=== PATIENT | male | born 1975 | race Caucasian/White ===

== ENCOUNTER 2024-02-26 18:31 | Emergency (ER) | payer BC, SELFPAY ==
[2024-02-26 18:35] VITALS: PULSE 97; RESP 18; O2SAT 97
[2024-02-26 19:27] VITALS: BP 164/89; PULSE 96; RESP 18; TEMP 37; O2SAT 95; BMI 61.2
--- NOTE | 2024-02-26 19:39 | EKG_ITS ---
[facility] Test Date: 2024-02-26 Pat Name: ALICE GOYAL Department: Room: - Gender: Male [employer]: : 1975 Requested By: Zelalem Roa ([facility]) Order Number: [id number] Reading MD: Zelalem Roa ([facility]) Measurements Intervals [place] Rate: 88 P: 50 GA: 174 QRS: 71 QRSD: 110 T: 15 QT: 356 QTc: 431 Interpretive Statements SINUS RHYTHM No previous ECG available for comparison /store/S0/[id number]/[id number].pdf
--- NOTE | 2024-02-26 19:39 | XR_ITS ---
Examination: PA lateral chest 2 views Technique: Upright PA lateral chest 2 views Exam date and time: February 26, 20242021 hrs. Comparison December 09, 2015, December 14, 2015 Indication: Chest pain today. Findings: No significant cardiac enlargement Moderate vascular congestion No lobar pneumonia The osseous structures are intact Impression: Moderate vascular congestion
--- NOTE | 2024-02-26 19:39 | PD.EDRME ---
Rapid Medical Screening Exam RME Arrival date/time: 02/26/24 18:31 48-year-old morbidly obese male with past medical history of blood clots and hypertension presents emergency department complaining of shortness of breath on exertion and cough for several weeks. Chief Complaint: General Adult/Misc Complain Time Seen by Provider: 02/26/24 19:01 Vital signs: Vital Signs Temperature 98.6 F 02/26/24 19:27 Pulse Rate 96 02/26/24 19:27 Respiratory Rate 18 02/26/24 19:27 Blood Pressure 164/89 H 02/26/24 19:27 Pulse Oximetry (%) 95 02/26/24 19:27 Oxygen Delivery Method Room Air 02/26/24 19:27 Vital signs reviewed by provider: Yes
[2024-02-26 20:10] LABS: Basophils % (Auto) 1 % (0-2.5); Eosinophils % (Auto) 1 % (0-10); Hematocrit 39.9 % (41.0-53.0); Hemoglobin 13.2 g/dL (13.5-16.0); Immature Granulocytes % (Auto) 1 % (0-0); Immature Granulocytes Auto 0.03 Thou/mm3 (0.00-0.00); Lymphocytes # (Auto) 0.6 Thou/mm3 (1.0-4.8); Lymphocytes % (Auto) 10 % (10-50); Mean Corpuscular HGB Conc 33.1 g/dl (31.0-37.0); Mean Corpuscular Hemoglobin 27.3 pg (25.0-35.0); Mean Corpuscular Volume 82 fL (80-100); Monocytes # (Auto) 0.6 Thou/mm3 (0.0-0.8); Monocytes % (Auto) 10 % (0-12); Neutrophils # (Auto) 4.8 Thou/mm3 (1.8-7.7); Neutrophils % (Auto) 79 % (37-80); Nucleated Red Blood Cell % 0 /100 WBC (0); Platelet Count 180 Thou/mm3 (140-440); RDW Standard Deviation 41.4 fL (35.1-43.9); Red Blood Count 4.84 Miln/mm3 (4.50-5.90)
[2024-02-26 20:20] LABS: Collection Type, Urine Clean Catch; Squamous Epithelial Cell,Urine 0 /hpf (0-5)
[2024-02-26 20:27] LABS: B-Type Natriuretic Peptide 84 pg/mL (0-100)
[2024-02-26 20:28] LABS: Alanine Aminotransferase 11 U/L (10-49); Albumin, Serum 4.2 gm/dL (3.5-5.0); Albumin/Globulin Ratio 1.4 (1.2-2.2); Alkaline Phosphatase 77 U/L (46-116); Anion Gap 7 (7-16); Aspartate Amino Transferase 13 U/L (0-34); BUN/Creatinine Ratio 9 Ratio (12-20); Bilirubin,Total 0.8 mg/dL (0.3-1.2); Blood Urea Nitrogen 9 mg/dL (9-23); Calcium 9.2 mg/dL (8.3-10.6); Calcium (Corrected) 9.2 mg/dL (8.5-10.1); Chloride 102 mMol/L (98-107); Estimated Creatinine Clearance 151.5 mL/min (>60); Globulin 3.1 gm/dL (2.3-3.5); Glucose 124 mg/dL (74-106); Magnesium 1.7 mg/dL (1.6-2.6); Osmolality,Calculated 269 (275-295); Potassium 3.8 mMol/L (3.4-5.1); Sodium 135 mMol/L (136-145); Total Protein 7.3 gm/dL (5.7-8.2); Troponin I < 0.002 ng/mL (0.0-0.045); eGFR > 60 See Note
[2024-02-26 20:30] LABS: INR 1.1 (0.9-1.3); Partial Thromboplastin Time 36.5 Seconds (22.0-36.0); Prothrombin Time 12.2 Seconds (9.0-12.2)
[2024-02-26 20:31] LABS: Bacteria,Urine Rare; Bilirubin,Urine Negative (Negative); Blood,Urine Negative (Negative); Clarity,Urine Clear (Clear/Hazy); Color,Urine Lt-Yellow (Lt Yel-Yel); Glucose, Urine Negative (Negative); Ketones,Urine Negative (Negative); Leukocyte Esterase,Urine Negative (Negative); Nitrite,Urine Negative (Negative); PH,Urine 7.5 (5.0-7.0); Protein,Urine Trace (Neg - Trace); RBC,Urine 5 /hpf (0-3); Specific Gravity,Urine 1.017 (1.001-1.035); WBC,Urine 1 /hpf (0-5)
[2024-02-26 20:59] LABS: Amphetamine/Methamp Scrn,U Negative (Negative); Barbiturate Screen,Urine Negative (Negative); Benzodiazepines Screen,Urine Negative (Negative); Benzoylecgonine Screen, Ur Negative (Negative); Fentanyl Screen,Urine Negative (Negative); Opiate Screen,Urine Negative (Negative); THC Screen,Urine Negative (Negative)
--- NOTE | 2024-02-26 22:37 | XR_ITS ---
Examination: CTA chest with intravenous contrast 2-D reconstructions 3-D reconstructions, vascular Date and time of exam: February 26, 2024 1144 hours INDICATIONS: Weakness chest pain redness of breath beginning one week ago CTDI: vol (mGy) 67.73 DLP: (mGycm) 775 Technique: Multiple axial sections of the thorax have been obtained. 3 mm slice thickness, from below the hemidiaphragms to above the apices of the lungs. Mediastinal and lung density settings have been obtained. 2-D sagittal and coronal reconstructions. 3-D angiographic renderings, 3-D volume renderings, 3D post processing, vascular maximum intensity projections obtained. Contrast administered is 100 cc Isovue-370 intravenous. Low dose protocols were performed. One or more of the following dose reduction techniques were used; automated exposure control, adjustment of the mA and/or KV according to patient size, use of iterative reconstruction technique. Findings: No thoracic aortic aneurysm dilatation No pulmonary artery emboli. No pathologic mediastinal lymphadenopathy Soft parenchymal opacities in both lungs consistent with pneumonia No pleural disease Enlarged left atrium No visualized liver or splenic lesion IMPRESSION: Negative for pulmonary artery emboli Bilateral pneumonia, primary lung bases
--- NOTE | 2024-02-26 23:48 | EDNOTE_ITS ---
ED General RME/HPI General Chief complaint: General Adult/Misc Complain Stated complaint: GENERAL ILLNESS Time Seen by Provider: 02/26/24 19:01 Arrival date/time: 02/26/24 18:31 RME / HPI RME / HPI narrative: LChief complaint: 02/26/24 18:31 48-year-old morbidly obese male with past medical history of blood clots and hypertension presents emergency department complaining of shortness of breath on exertion and cough for several weeks. HPI: Mr. 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 Patient states that he went to [place] 5 years celebrations, and returned 3 days ago, since then he has been experiencing shortness of breath which has gotten progressively worse, especially on activity ambulation and exertion. He otherwise walks without assistance able to ambulate comfortably. However over the last 3 days patient has had a productive cough with greenish-yellow sputum, postnasal drip and intermittent fevers up to 100.6 on home thermometer, along with the worsening shortness of breath. He denies any chills, history of lung issues such as asthma or COPD, or chest pain. He was advised to use a CPAP given obesity hypoventilation syndrome, however does not have it set up at home yet and is not compliant. He also thinks that his shortness of breath got worse with [place] and weakness. Will also of note, patient never received his flu vaccination this cycle. Medication list: As needed bisacodyl Eliquis 2.5 mg twice daily Labetalol Iron supplements Allergies: NKFDA Social history: Tobacco?Use:?Denies ETOH?Use:?Socially Drug?Note:?Denies Social?History?Note:?Lives?with? Family history: Positive for stroke, negative for any heart disease or cancers. Related Data Home Medications ?Medication ?Instructions ?Recorded ?Confirmed BEDSIDE COMMODE 1 ea ##1 12/16/15 Previous Rx's ?Medication ?Instructions ?Recorded FRONT WHEEL WALKER 1 ea ##1 12/16/15 LABETALOL HCL (NORMODYNE) 200 mg PO BID #60 tabs 12/16/15 OXYGEN 1 l NASAL CAN CONTINUOUS ##2 12/16/15 apixaban 5 mg tablet (Eliquis) 5 mg PO BID #60 tabs 12/16/15 apixaban 5 mg tablet (Eliquis) 10 mg (2 x 5 mg) PO BID #6 tabs 12/16/15 bisacodyl 5 mg tablet,delayed 5 mg PO QDAY PRN CONSTIPATION ##30 12/16/15 release ferrous gluconate 324 mg (38 mg 324 mg PO BIDWM #30 tabs 12/16/15 iron) tablet Allergies Allergy/AdvReac Type Severity Reaction Status Date / Time NKA* Allergy Uncoded 02/26/24 18:39 Review of Systems Review of Systems Narrative Review of Systems: GENERAL: fevers, no diaphoresis. HEENT: Denies headache or visual/hearing changes. Denies nasal discharge. NEURO: Denies unusual weakness or difficulty speaking. CARDIO: Denies chest pain or palpitations. PULM: SOB, coughing, no wheezing. GI: Denies abdominal pain, N/V/C/D. Reports having BMs URO: Denies burning/itching/pain/urinary changes. MSK/EXT/SKIN: Denies joint/skeletal/muscle pain, issues/changes in upper or lower extremities, itchiness, or superficial pain. PSYCH: Cooperative, pleasant mood & affect. The rest of the review of systems is otherwise negative. ED Exam Narrative Physical exam: Constitutional Alert, oriented x4, morbidly obese HEENT Vision grossly intact. Patent nares. Trachea midline. Congestion Respiratory Chest normal on inspection, soft crackles on auscultation bilaterally. Cardiovascular S1 and S2 audible, RRR. No murmurs or carotid bruit. No gross JVD. Abdominal Soft and non tender to palpation in all quadrants. BS + Genitourinary No bladder tenderness, no flank pain. Normal to palpation. Musculoskeletal Extremities tone within normal limits. 1+ LE edema. Neurological CN II - XII grossly intact. Extremity motor and sensation grossly intact. Skin Warm, dry and intact. No apparent lesions. Psychiatric Patient has a good affect, is cooperative. Course Quality Measures VTE prophylaxis Orders Category Date Time Status Bedside Influenza A&B Antigen Test NOW Care 02/26/24 19:[address] Screening NOW Care 02/26/24 22:39 Active EKG (ED ONLY) *Do not use* NOW Care 02/26/24 19:[address] angio chest Stat Exams 02/26/24 22:37 Taken EKG (ED Only) Stat Exams 02/26/24 19:39 Draft XR chest 2V Stat Exams 02/26/24 19:39 Completed B-Type Natriuretic Peptide Stat Lab 02/26/24 19:57 Completed CBC Stat Lab 02/26/24 19:57 Completed Comprehensive Metabolic Panel Stat Lab 02/26/24 19:57 Completed Drug Screen,Urine Stat Lab 02/26/24 20:06 Completed Magnesium Stat Lab 02/26/24 19:57 Completed Partial Thromboplastin Time Stat Lab 02/26/24 19:57 Completed Prothrombin Time with INR Stat Lab 02/26/24 19:57 Completed Troponin I Stat Lab 02/26/24 19:57 Completed Urinalysis Stat Lab 02/26/24 20:06 Completed Vital Signs Vital signs: Vital Signs Temperature 98.6 F 02/26/24 19:27 Pulse Rate 96 02/26/24 19:27 Respiratory Rate 18 02/26/24 19:27 Blood Pressure 164/89 H 02/26/24 19:27 Pulse Oximetry (%) 95 02/26/24 19:27 Oxygen Delivery Method Room Air 02/26/24 19:27 [facility] Patient data External records reviewed:: None Clinical information provided by:: patient and friend Social determinants that could affect healthcare access:: none Patient has the following chronic illnesses:: 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 (list below): No Diagnosis Differential Diagnosis ED Complaint MDM: PE ruled out Most likely diagnosis given after review of the tests above:: Multifocal pneumonia Admission Indicated Admission indicated?: not indicated Explain why admission is indicated or not indicated:: Can do outpatient antibiotic course, pt is on room air, stable Admission Request Was there a request for admission?: No Disposition Plan Disposition Plan: Discharge Discharge Attestation Discharge Attestation: Patient is being discharged home on Augmentin 500mg twice a day for 5 days, follow up PCP. Will need CPAP. Patient condition: Stable The patient and all family members were given an opportunity to ask questions and understood the discharge instructions. Discharge instructions specifically effects, indications for sooner follow up or return to the emergency department, and the expected course of current diagnosis. Medical Decision Making Differential Diagnosis Differential Diagnosis: PE ruled out Lab Data 02/26/24 19:57 02/26/24 19:57 Labs: Lab Results 02/26/24 02/26/24 Range/Units 19:57 20:06 WBC 6.0 (3.8-10.6) Thou/mm3 RBC 4.84 (4.50-5.90) Miln/mm3 Hgb 13.2 L (13.5-16.0) g/dL Hct 39.9 L (41.0-53.0) % MCV 82 (80-100) fL MCH 27.3 (25.0-35.0) pg MCHC 33.1 (31.0-37.0) g/dl RDW Std Deviation 41.4 (35.1-43.9) fL Plt Count 180 (140-440) Thou/mm3 Neut % (Auto) 79 (37-80) % Lymph % (Auto) 10 (10-50) % [place] % (Auto) 10 (0-12) % Eos % (Auto) 1 (0-10) % Baso % (Auto) 1 (0-2.5) % Neut # (Auto) 4.8 (1.8-7.7) Thou/mm3 Lymph # (Auto) 0.6 L (1.0-4.8) Thou/mm3 [place] # (Auto) 0.6 (0.0-0.8) Thou/mm3 Eos # (Auto) 0.0 (0.0-0.5) Thou/mm3 Baso # (Auto) 0.0 (0.0-0.2) Thou/mm3 Immature Gran # (Auto) 0.03 H (0.00-0.00) Thou/mm3 Absolute Nucleated RBC 0.00 (0.00-0.00) Thou/mm3 Immature Gran % 1 H (0-0) % Nucleated RBC % 0 (0) /100 WBC PT 12.2 (9.0-12.2) Seconds INR 1.1 (0.9-1.3) APTT 36.5 H (22.0-36.0) Seconds Sodium 135 L (136-145) mMol/L Potassium 3.8 (3.4-5.1) mMol/L Chloride 102 (98-107) mMol/L Carbon Dioxide 26.0 (20.0-31.0) mMol/L Anion Gap 7 (7-16) BUN 9 (9-23) mg/dL Creatinine 1.0 (0.6-1.3) mg/dL Estim Creat Clear Calc 151.5 (>60) mL/min eGFR > 60 (60 - ) See Note BUN/Creatinine Ratio 9 L (12-20) Ratio Glucose 124 H (74-106) mg/dL Calculated Osmolality 269 L (275-295) Calcium 9.2 (8.3-10.6) mg/dL Corrected Calcium 9.2 (8.5-10.1) mg/dL Magnesium 1.7 (1.6-2.6) mg/dL Total Bilirubin 0.8 (0.3-1.2) mg/dL AST 13 (0-34) U/L ALT 11 (10-49) U/L Alkaline Phosphatase 77 (46-116) U/L Troponin I < 0.002 (0.0-0.045) ng/mL B-Natriuretic Peptide 84 (0-100) pg/mL Total Protein 7.3 (5.7-8.2) gm/dL Albumin 4.2 (3.5-5.0) gm/dL Globulin 3.1 (2.3-3.5) gm/dL Albumin/Globulin Ratio 1.4 (1.2-2.2) Ur Collection Type Clean Catch Urine Color Lt-Yellow (Lt Yel-Yel) Urine Clarity Clear (Clear/Hazy) Urine pH 7.5 H (5.0-7.0) Ur Specific [place] 1.017 (1.001-1.035) Urine Protein Trace (Neg - Trace) Urine Glucose (UA) Negative (Negative) Urine Ketones Negative (Negative) Urine Blood Negative (Negative) Urine Nitrite Negative (Negative) Urine Bilirubin Negative (Negative) Urine Urobilinogen (Auto) 2.0 (0.0-1.0) mg/dL Ur Leukocyte Esterase Negative (Negative) Urine RBC 5 H (0-3) /hpf Urine WBC 1 (0-5) /hpf Ur Squamous Epith Cells 0 (0-5) /hpf Urine Bacteria Rare (None) Urine Opiates Screen Negative (Negative) Urine Fentanyl Screen Negative (Negative) Ur Barbiturates Screen Negative (Negative) U Amphetamin/Meth Scrn Negative (Negative) U Benzodiazepines Scrn Negative (Negative) U Cocaine Metab Screen Negative (Negative) U Marijuana (THC) Screen Negative (Negative) Discharge Plan Plan Patient Disposition: HOME (Self Care) Disposition Comment: Stable and at baseline Patient condition on transfer: Stable Prescriptions/Referrals Prescriptions/Med Rec: No Action bisacodyl 5 MG tablet,delayed release (DR/EC) 5 mg PO QDAY PRN (Reason: CONSTIPATION) Qty: 30 0RF ferrous gluconate 324 MG tablet 324 mg PO BIDWM Qty: 30 0RF apixaban [Eliquis] 5 MG tablet 10 mg PO BID Qty: 6 0RF apixaban [Eliquis] 5 MG tablet 5 mg PO BID Qty: 60 0RF Rx Instructions: start eliquis 5 mg twice a day after 3 days LABETALOL HCL (NORMODYNE) 100 MG tablet 200 mg PO BID Qty: 60 0RF FRONT WHEEL WALKER EACH 1 ea Qty: 1 0RF OXYGEN EACH 1 l NASAL CAN CONTINUOUS Qty: 2 0RF BEDSIDE COMMODE EACH 1 ea Qty: 1 Referrals: Sarbjit Mendez MD [Primary Care Provider] - In 1 week Problem List Clinical Impression: Morbid obesity Patient/Caregiver Discharge Instructions Discharge Activity: resume usual activities Print Language: Yakut Stand Alone Forms: Lila Award Info., Patient Portal Info Letter
[2024-02-27 00:27] VITALS: BP 157/91; PULSE 95; RESP 20; O2SAT 95
--- NOTE | 2024-02-27 00:45 | PRELIM_ITS ---
CT angiogram of the chest with intravenous contrast (axial sections with sagittal and coronal reforma ts) February 26, 2024 at 2344 hours Clinical History: CP, SOB Technique:Helical axial sections with sa gittal and coronal reformats of the chest were obtained with intravenous contrast. Iterative reconstr uction technique was employed to reduce patient radiation exposure. MIP reconstructed images were al so provided. Comparison: None.Findings:Image quality is limited by the patient body habitus.There is no filling defect within the pulmonary artery divisions to suggest pulmonary thromboembolism.Prominen t mediastinal and bilateral hilar lymph nodes, probably reactive.Dilated left atrium. The thoracic ao rta is unremarkable. There is no pericardial effusion. Consolidations in bilateral lower lobes. Conso lidation in the right upper lobe. No evidence of pleural effusion or pneumothorax.Degenerative change s of the imaged portions of the spine. No acute fractures.The visualized upper abdominal viscera are unremarkable.Impression:1. No CT evidence of pulmonary thromboembolism.2. Multifocal pneumonia.3. Pro bably reactive mediastinal and bilateral hilar lymphadenopathy.4. Dilated left atrium. Report Electro nically Signed By: Bob Talley 02/27/2024 12:44:12 AM [EST]
== END 2024-02-27 01:20 | disposition home or self-care (01) ==
PROVIDERS: Emergency Provider Emergency Medicine; PCP Family Medicine
DX: E66.01 Morbid (severe) obesity due to excess calories (principal); Z86.711 Personal history of pulmonary embolism; I10 Essential (primary) hypertension; Z68.44 Body mass index [BMI] 60.0-69.9, adult; R05.9 Cough, unspecified; R06.02 Shortness of breath
CPT/HCPCS: 36415; 71046; 71275; 80053; 80307; 81001; 83735; 83880; 84484; 85025; 85610; 85730; 87400; 93005; 99285; A4649; Q9967

== ENCOUNTER 2024-08-11 11:35 | Emergency (ER) | payer BC, SELFPAY ==
[2024-08-11 11:36] VITALS: BMI 61.7
[2024-08-11 11:45] VITALS: BP 104/70; PULSE 109; RESP 20; TEMP 36.5; O2SAT 94; BMI 64.3
[2024-08-11 12:00] VITALS: TEMP 37.2
--- NOTE | 2024-08-11 12:01 | XR_ITS ---
Examination: Duplex scan of the lower extremity, unilateral left Date and time of exam: August 11, 2024 1239 hours INDICATIONS: Left leg swelling redness and pain beginning 2 days ago Technique: Duplex scan of the extremity veins using B-mode/grayscale imaging and Doppler spectral analysis and color flow Attention is directed to internal echogenicity, compression and augmentation involving these veins, color flow assessment, spectral analysis Findings: Major deep venous structures in the extremity demonstrate normal course and caliber. There is no evidence of deep vein thrombosis. Normal color flow and spectral analysis Impression: Negative for DVT..
--- NOTE | 2024-08-11 12:03 | PD.EDRME ---
Rapid Medical Screening Exam RME Arrival date/time: 08/11/24 11:35 49-year-old male presents emergency department today for complaints of erythema to left lower extremity patient also reports he had a fever as high as 102 Chief Complaint: Extremity Injury, Lower Vital signs: Vital Signs Temperature 97.7 F 08/11/24 11:45 Pulse Rate 109 H 08/11/24 11:45 Respiratory Rate 20 08/11/24 11:45 Blood Pressure 104/70 08/11/24 11:45 Pulse Oximetry (%) 94 L 08/11/24 11:45 Oxygen Delivery Method Room Air 08/11/24 11:45
[2024-08-11 12:43] LABS: Lactate (Lactic Acid) 2.5 mMol/L (0.4-2.0)
[2024-08-11 12:44] LABS: Basophils % (Auto) 0 % (0-2.5); Eosinophils % (Auto) 0 % (0-10); Hematocrit 41.8 % (41.0-53.0); Hemoglobin 14.2 g/dL (13.5-16.0); Immature Granulocytes % (Auto) 1 % (0-0); Immature Granulocytes Auto 0.11 Thou/mm3 (0.00-0.00); Lymphocytes # (Auto) 0.8 Thou/mm3 (1.0-4.8); Lymphocytes % (Auto) 7 % (10-50); Mean Corpuscular Hemoglobin 28.1 pg (25.0-35.0); Mean Corpuscular Volume 83 fL (80-100); Monocytes # (Auto) 0.3 Thou/mm3 (0.0-0.8); Monocytes % (Auto) 3 % (0-12); Neutrophils % (Auto) 88 % (37-80); Nucleated Red Blood Cell % 0 /100 WBC (0); Platelet Count 166 Thou/mm3 (140-440); RDW Standard Deviation 46.5 fL (35.1-43.9); Red Blood Count 5.06 Miln/mm3 (4.50-5.90); White Blood Count 10.2 Thou/mm3 (3.8-10.6)
[2024-08-11 12:59] LABS: INR 1.4 (0.9-1.3); Partial Thromboplastin Time 45.4 Seconds (22.0-36.0); Prothrombin Time 14.5 Seconds (9.0-12.2)
--- NOTE | 2024-08-11 13:06 | PC.NURSE ---
PT IN TODAY WITH REDNESS TO LEFT LOWER EXTREMITY AND FEVER THAT STARTED YESTERDAY. PT DID TAKE TYLENOL AT 1100 TODAY. PT IS A/O X4 AT THIS TIME. PT STATES TO HAVE PAIN TO THE LEFT LEG WHEN AMBULATING. PT RATES PAIN AT 2/10 AT THIS TIME AND DESCRIBES IT SHARP. PT AWAITING TO BE SEEN BY .
--- NOTE | 2024-08-11 13:11 | XR_ITS ---
Examination: AP chest single view TECHNIQUE: Portable AP upright chest single view Date and time: August 11, 2024 1317 hours INDICATIONS: Fever 102 FINDINGS: Normal heart size. Mild vascular congestion. No lobar pneumonia IMPRESSION: No lobar pneumonia
[2024-08-11 13:13] LABS: Alanine Aminotransferase 21 U/L (10-49); Albumin, Serum 3.9 gm/dL (3.5-5.0); Albumin/Globulin Ratio 1.3 (1.2-2.2); Alkaline Phosphatase 68 U/L (46-116); Anion Gap 9 (7-16); Aspartate Amino Transferase 25 U/L (0-34); BUN/Creatinine Ratio 11 Ratio (12-20); Bilirubin,Total 1.3 mg/dL (0.3-1.2); Blood Urea Nitrogen 23 mg/dL (9-23); C-Reactive Protein > 10.0 mg/dL (0.0-0.9); Calcium 8.7 mg/dL (8.3-10.6); Calcium (Corrected) 8.8 mg/dL (8.5-10.1); Carbon Dioxide 26.7 mMol/L (20.0-31.0); Chloride 97 mMol/L (98-107); Creatinine (Component) 2.1 mg/dL (0.6-1.3); Estimated Creatinine Clearance 73.6 mL/min (>60); Glucose 131 mg/dL (74-106); Osmolality,Calculated 272 (275-295); Potassium 3.8 mMol/L (3.4-5.1); Procalcitonin 3.79 ng/ml (0.0-0.49); Sodium 133 mMol/L (136-145); Total Protein 6.9 gm/dL (5.7-8.2); eGFR 37 See Note
[2024-08-11 13:17] LABS: Sed Rate (ESR) 56 mm/hr (0-20)
[2024-08-11 13:23] VITALS: BP 108/57; PULSE 105; RESP 19; TEMP 37.2; O2SAT 95
--- NOTE | 2024-08-11 13:25 | PD.EDADULT ---
ED General RME/HPI General Chief complaint: Extremity Injury, Lower Stated complaint: FEVER & PAIN IN LLE C 36HRS Time Seen by Provider: 08/11/24 13:08 Arrival date/time: 08/11/24 11:35 Limitations: no limitations RME / HPI RME / HPI narrative: 08/11/24 11:35 49-year-old male presents emergency department today for complaints of erythema to left lower extremity patient also reports he had a fever as high as 102 DR. 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 Patient's mother wrote on his leg to check the erythema and it is better than yesterday, area is getting smaller. No fevers or chills. No shortness of breath. No other symptoms reported. Related Data Home Medications ?Medication ?Instructions ?Recorded ?Confirmed BEDSIDE COMMODE 1 ea ##1 12/16/15 Previous Rx's ?Medication ?Instructions ?Recorded FRONT WHEEL WALKER 1 ea ##1 12/16/15 LABETALOL HCL (NORMODYNE) 200 mg PO BID #60 tabs 12/16/15 OXYGEN 1 l NASAL CAN CONTINUOUS ##2 12/16/15 apixaban 5 mg tablet (Eliquis) 5 mg PO BID #60 tabs 12/16/15 apixaban 5 mg tablet (Eliquis) 10 mg (2 x 5 mg) PO BID #6 tabs 12/16/15 bisacodyl 5 mg tablet,delayed 5 mg PO QDAY PRN CONSTIPATION ##30 12/16/15 release ferrous gluconate 324 mg (38 mg 324 mg PO BIDWM #30 tabs 12/16/15 iron) tablet cephalexin 500 mg capsule 500 mg PO Q6H 10 days #40 caps 08/11/24 sulfamethoxazole 800 1 tab PO BID 10 days #20 tabs 08/11/24 mg-trimethoprim 160 mg tablet (Bactrim DS) Allergies Allergy/AdvReac Type Severity Reaction Status Date / Time No Known Allergies Allergy Verified 08/11/24 11:39 Review of Systems Review of Systems Systems Reviewed: All systems reviewed, normal except as documented Past Medical History Past Medical History CARDIAC: Positive Hypertension; Negative Cardiac Disorders or Congestive Heart Failure RESPIRATORY: Positive Pneumonia and Pulmonary Embolism; Negative Chronic Obstructive Pulmonary Disease (COPD) or Asthma GASTROINTESTINAL: Positive Gastroesophageal Reflux Disease GENITOURINARY: Negative Renal Disease ENDOCRINE: Negative Diabetes Mellitus Type 1 or Diabetes Mellitus Type 2 HEMATOLOGIC: Negative Sickle Cell Disease Social History SMOKING STATUS: Never smoker ED Exam General Limitations: Present no limitations General appearance: Present alert, in no apparent distress and obese Head Head exam: Present atraumatic, normocephalic and normal inspection Eye Eye exam: Present normal appearance, PERRL and EOMI ENT ENT exam: Present normal exam, normal oropharynx and mucous membranes moist Neck Neck exam: Present normal inspection, full ROM and trachea midline Chest Chest inspection: Present normal inspection and symmetric chest wall rise Respiratory Respiratory exam: Present normal lung sounds bilaterally Cardiovascular Cardiovascular exam: Present regular rate, normal rhythm and normal heart sounds Abdominal Exam Abdominal exam: Present soft, normal bowel sounds and other (obese) Extremities Exam Extremities exam: Present full ROM and other (left lower extremity erythema measuring 7 x 6 cm, getting smaller since yesterday, with some scaling.) Back Exam Back exam: Present normal inspection and full ROM Neurological Exam Neurological exam: Present alert, oriented X3 and CN II-XII intact Psychiatric Psychiatric exam: Present normal affect and normal mood Skin Skin exam: Present warm, dry, intact and normal color Course Quality Measures none Orders Category Date Time Status Transcription NOW Care 08/11/24 13:11 Completed Continuous Pulse Oximetry NOW Care 08/11/24 13:11 Completed Insert IV NOW Care 08/11/24 13:11 Completed US venous doppler LE LT Stat Exams 08/11/24 12:01 Completed XR chest 1V portable Stat Exams 08/11/24 13:11 Completed Blood Culture (Lab) Stat Lab 08/11/24 12:22 Received CBC Stat Lab 08/11/24 12:22 Completed CMP [Comprehensive Metabolic Panel] Stat Lab 08/11/24 12:22 Completed CRP [C-Reactive Protein] Stat Lab 08/11/24 12:22 Completed ESR [Sed Rate (ESR)] Stat Lab 08/11/24 12:22 Completed Lactic Acid [Lactate (Lactic Acid)] Stat Lab 08/11/24 12:22 Completed PT [Prothrombin Time with INR] Stat Lab 08/11/24 12:22 Completed PTT [Partial Thromboplastin Time] Stat Lab 08/11/24 12:22 Completed Procalcitonin Stat Lab 08/11/24 12:22 Completed Piper/Tazo 3.375 gm Premix [Zosyn] Med 08/11/24 13:12 Discontinued 3.375 gm in 50 ml IV X1 Sodium Chloride 0.9% 1000 ml [Ns] 1,000 ml Med 08/11/24 13:11 Discontinued IV 100 mls/hr Vital Signs Vital signs: Vital Signs Temperature 97.7 F 08/11/24 11:45 Pulse Rate 109 H 08/11/24 11:45 Respiratory Rate 20 08/11/24 11:45 Blood Pressure 104/70 08/11/24 11:45 Pulse Oximetry (%) 94 L 08/11/24 11:45 Oxygen Delivery Method Room Air 08/11/24 11:45 Discharge Plan Plan Patient Disposition: HOME (Self Care) Patient condition on transfer: Stable Prescriptions/Referrals Prescriptions/Med Rec: New cephalexin 500 mg capsule 500 mg PO Q6H 10 Days Qty: 40 0RF sulfamethoxazole-trimethoprim [Bactrim DS] 800-160 mg tablet 1 tab PO BID 10 Days Qty: 20 0RF No Action bisacodyl 5 MG tablet,delayed release (DR/EC) 5 mg PO QDAY PRN (Reason: CONSTIPATION) Qty: 30 0RF ferrous gluconate 324 MG tablet 324 mg PO BIDWM Qty: 30 0RF apixaban [Eliquis] 5 MG tablet 10 mg PO BID Qty: 6 0RF apixaban [Eliquis] 5 MG tablet 5 mg PO BID Qty: 60 0RF Rx Instructions: start eliquis 5 mg twice a day after 3 days LABETALOL HCL (NORMODYNE) 100 MG tablet 200 mg PO BID Qty: 60 0RF FRONT WHEEL WALKER EACH 1 ea Qty: 1 0RF OXYGEN EACH 1 l NASAL CAN CONTINUOUS Qty: 2 0RF BEDSIDE COMMODE EACH 1 ea Qty: 1 Problem List Clinical Impression: Cellulitis Patient/Caregiver Discharge Instructions Education Materials: ED Cellulitis Additional Instructions: Take Tylenol 500 mg 2 tabs every 6 hours PLUS Advil 200 mg gel 2 tablets as needed for pain. Please follow-up with your primary care physician within 2-3 days. Return to the Emergency Department as needed. Print Language: Kiswahili Stand Alone Forms: Lila Award Info., Patient Portal Info Letter MDM Narrative MDM hospital course: Maria E Herman am scribing for and in the presence of Dr. Calvert. 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 Mild vascular congestion. No lobar pneumonia IMPRESSION: No lobar pneumonia Dictated By: Darion Hernandez MD Procedure(s): US venous doppler LE LT Accession Number(s): [id number] cc: Andria (MARCUS),Austen VELAZQUEZ; Darion Hernandez MD~ Examination: Duplex scan of the lower extremity, unilateral left Date and time of exam: August 11, 2024 1239 hours INDICATIONS: Left leg swelling redness and pain beginning 2 days ago Technique: Duplex scan of the extremity veins using B-mode/grayscale imaging and Doppler spectral analysis and color flow Attention is directed to internal echogenicity, compression and augmentation involving these veins, color flow assessment, spectral analysis Findings: Major deep venous structures in the extremity demonstrate normal course and caliber. There is no evidence of deep vein thrombosis. Normal color flow and spectral analysis Impression: Negative for DVT.. Dictated By: Darion Hernandez MD Medication Administration(s) Medication Administration History Discontinued Medications Sodium Chloride (Ns) 1,000 mls @ 100 mls/hr IV .Q10H ONE Stop: 08/11/24 23:10 Last Infusion: 08/11/24 15:19 Dose: Infused Documented By: Admin: 08/11/24 13:38 Dose: 100 mls/hr Documented By: RONAS Piperacillin/Tazobactam/Dextrose (Zosyn) 3.375 gm in 50 mls @ 100 mls/hr IV X1 ONE Stop: 08/11/24 13:41 Last Infusion: 08/11/24 15:19 Dose: Infused Documented By: Admin: 08/11/24 13:39 Dose: 100 mls/hr Documented By: RONAS Diagnosis Differential diagnosis: cellulitis, DVT, erythema Most likely dx, and/or detailed dx discussion: Cellulitis Dispositon Disposition: Discharge Home
[2024-08-11] MEDS: SODIUM CHLORIDE 0.9% 1000 ML 1,000 ML 100 ML IV (13:38)
[2024-08-11] MEDS: PIPER/TAZO 3.375 GM PREMIX 3.375 GM/50 ML BAG IV (13:39)
[2024-08-11 15:19] VITALS: BP 126/80; PULSE 96; O2SAT 95
[2024-08-11 15:37] LABS: Reflex Lactate? Y
== END 2024-08-11 15:20 | disposition home or self-care (01) ==
LOC: SERX 13:43
PROVIDERS: Nurse Practitioner Primary Care; Emergency Provider Family Medicine; PCP Family Medicine
DX: L03.116 Cellulitis of left lower limb (principal); R50.9 Fever, unspecified
CPT/HCPCS: 36415; 71045; 80053; 81001; 83605; 84145; 85025; 85610; 85652; 85730; 86140; 87040; 93971; 96365; 96366; 99284; J2543; J7030

== ENCOUNTER → 2024-08-13 | Outpatient (CLI) | payer BC, SELFPAY ==
[2024-08-13 16:50] LABS: Glucose Estimated Average 114 mg/dL (80-131); Hemoglobin A1C 5.6 % Hgb (4.8-6.0)
[2024-08-13 16:58] LABS: Alanine Aminotransferase 18 U/L (10-49); Albumin, Serum 3.9 gm/dL (3.5-5.0); Albumin/Globulin Ratio 1.3 (1.2-2.2); Alkaline Phosphatase 70 U/L (46-116); Anion Gap 7 (7-16); Aspartate Amino Transferase 16 U/L (0-34); BUN/Creatinine Ratio 18 Ratio (12-20); Bilirubin,Total 0.5 mg/dL (0.3-1.2); Blood Urea Nitrogen 28 mg/dL (9-23); Calcium 8.8 mg/dL (8.3-10.6); Calcium (Corrected) 8.9 mg/dL (8.5-10.1); Carbon Dioxide 29.5 mMol/L (20.0-31.0); Cardiac Risk Estimate 5.9 RATIO (4.0-6.7); Chloride 101 mMol/L (98-107); Cholesterol 107 mg/dL (132-200); Creatinine (Component) 1.6 mg/dL (0.6-1.3); Globulin 2.9 gm/dL (2.3-3.5); Glucose 114 mg/dL (74-106); HDL Cholesterol 18 mg/dL (40-60); LDL Cholesterol,Calculated 52 mg/dL (0-130); Osmolality,Calculated 280 (275-295); Potassium 3.9 mMol/L (3.4-5.1); Sodium 137 mMol/L (136-145); Thyroid Stimulating Hormone 3.92 uIU/mL (0.55-4.78); Total Protein 6.8 gm/dL (5.7-8.2); Triglycerides 185 mg/dL (30-150); eGFR 52 See Note
[2024-08-13 17:32] LABS: T4 (Thyroxine) 6.9 mcg/dL (4.5-10.9)
== END | disposition home or self-care (01) ==
LOC: COPL 15:33
PROVIDERS: PCP Family Medicine; Referring Provider Family Medicine; Visit Provider Family Medicine
DX: E66.01 Morbid (severe) obesity due to excess calories (principal); G47.33 Obstructive sleep apnea (adult) (pediatric); I10 Essential (primary) hypertension; R79.9 Abnormal finding of blood chemistry, unspecified
CPT/HCPCS: 36415; 80053; 80061; 83036; 84436; 84443

== ENCOUNTER 2024-08-15 08:23 | Inpatient (IN) | payer BC, SELFPAY ==
[2024-08-15] VITALS (19 sets, daily range): BP systolic 91–169; BP diastolic 63–98; PULSE 82–100; RESP 18–20; TEMP 36.7–37.4; O2SAT 88–97; BMI 63.8; BMI 62.2
--- NOTE | 2024-08-15 09:10 | PD.EDRME ---
Rapid Medical Screening Exam E Arrival date/time: 08/15/24 08:23 49-year-old male with a history of hypertension, presents to the emergency room with a chief complaint of left lower extremity swelling, erythema, drainage. Patient was seen here 4 days ago and was discharged with cellulitis given oral antibiotics. Patient was seen by his primary care provider and was sent to the emergency room for IV antibiotics. I have greeted and performed a focused initial assessment of this patient. A comprehensive ED assessment and evaluation of the patient, analysis of all test results, and completion of the medical decision making process will be conducted by additional ED providers. Chief Complaint: Wound/Laceration Time Seen by Provider: 08/15/24 08:53 Vital signs: Vital Signs Temperature 98.3 F 08/15/24 08:53 Pulse Rate 100 08/15/24 08:53 Respiratory Rate 20 08/15/24 08:53 Blood Pressure 145/82 H 08/15/24 08:53 Pulse Oximetry (%) 95 08/15/24 08:53 Oxygen Delivery Method Room Air 08/15/24 08:53 Vital signs reviewed by provider: Yes
[2024-08-15 09:38] LABS: Lactate (Lactic Acid) 1.1 mMol/L (0.4-2.0)
[2024-08-15 09:46] LABS: Basophils % (Auto) 0 % (0-2.5); Eosinophils # (Auto) 0.1 Thou/mm3 (0.0-0.5); Eosinophils % (Auto) 1 % (0-10); Hematocrit 37.7 % (41.0-53.0); Hemoglobin 12.5 g/dL (13.5-16.0); Immature Granulocytes % (Auto) 1 % (0-0); Immature Granulocytes Auto 0.09 Thou/mm3 (0.00-0.00); Lymphocytes # (Auto) 1.3 Thou/mm3 (1.0-4.8); Lymphocytes % (Auto) 15 % (10-50); Mean Corpuscular HGB Conc 33.2 g/dl (31.0-37.0); Mean Corpuscular Hemoglobin 27.4 pg (25.0-35.0); Mean Corpuscular Volume 83 fL (80-100); Monocytes # (Auto) 0.7 Thou/mm3 (0.0-0.8); Monocytes % (Auto) 8 % (0-12); Neutrophils # (Auto) 6.6 Thou/mm3 (1.8-7.7); Neutrophils % (Auto) 75 % (37-80); Nucleated Red Blood Cell % 0 /100 WBC (0); Platelet Count 216 Thou/mm3 (140-440); RDW Standard Deviation 45.4 fL (35.1-43.9); Red Blood Count 4.57 Miln/mm3 (4.50-5.90); White Blood Count 8.8 Thou/mm3 (3.8-10.6)
[2024-08-15 10:34] LABS: Alanine Aminotransferase 18 U/L (10-49); Albumin/Globulin Ratio 1.2 (1.2-2.2); Alkaline Phosphatase 80 U/L (46-116); Anion Gap 8 (7-16); Aspartate Amino Transferase 15 U/L (0-34); BUN/Creatinine Ratio 17 Ratio (12-20); Bilirubin,Total 0.5 mg/dL (0.3-1.2); Blood Urea Nitrogen 22 mg/dL (9-23); Calcium 8.9 mg/dL (8.3-10.6); Calcium (Corrected) 8.9 mg/dL (8.5-10.1); Carbon Dioxide 27.1 mMol/L (20.0-31.0); Chloride 101 mMol/L (98-107); Creatinine (Component) 1.3 mg/dL (0.6-1.3); Estimated Creatinine Clearance 118.4 mL/min (>60); Globulin 3.3 gm/dL (2.3-3.5); Glucose 132 mg/dL (74-106); Osmolality,Calculated 277 (275-295); Potassium 3.7 mMol/L (3.4-5.1); Procalcitonin 0.65 ng/ml (0.0-0.49); Sodium 136 mMol/L (136-145); Total Protein 7.3 gm/dL (5.7-8.2); eGFR > 60 See Note
--- NOTE | 2024-08-15 12:11 | EDNOTE_ITS ---
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 Patient was diagnosed with cellulitis and seen in this emergency room 4 days ago was given IV Zosyn, and was discharged home on Keflex and Bactrim. Patient been taking the medication. Yesterday patient developed a fever. Went to PCP and was referred here for IV antibiotic. Patient is currently taking Eliquis for PE. Ultrasound was done of the left lower extremity 4 days ago and negative for DVT. Related Data Home Medications ?Medication ?Instructions ?Recorded ?Confirmed hydrochlorothiazide 25 mg tablet 25 mg PO QDAY 5 08/15/24 labetalol 200 mg tablet 200 mg PO Q12H 08/15/2407/21 omeprazole 40 mg capsule,delayed 40 mg PO QDAY 5 08/15/24 release valsartan 320 mg tablet 320 mg PO QDAY 08/15/2407/21 Previous Rx's ?Medication ?Instructions ?Recorded apixaban 5 mg tablet (Eliquis) 5 mg PO BID #60 tabs cephalexin 500 mg capsule 500 mg PO Q6H 10 days #40 ca ps 08/11/24 sulfamethoxazole 800 1 tab PO BID 10 days #20 tab s 08/11/24 mg-trimethoprim 160 mg tablet (Bactrim DS) Allergies Allergy/AdvReac Type Severity Reaction Status Date / Time No Known Allergies Allergy Verified 08/15/24 08:28 Review of Systems Review of Systems Narrative Review of Systems: Review of system reviewed and within normal limits except mentioned in HPI ED Exam Narrative Physical exam: VITAL SIGNS: Reviewed. GENERAL APPEARANCE: Alert and interactive, follows commands, no acute distress, HEAD AND FACE: Non-traumatic. ENT: PERRL, pink conjunctivitis, eyelid no trauma, Mucous membrane moist. NECK: Supple, nontender, no nuchal rigidity. CHEST: No tenderness, no crepitus, no paradoxical movement, no retractions. LUNGS: Clear, well ventilated, symmetric, no rales, no wheezing, no ronchi, no stridor, good breath sounds bilaterally. HEART: Regular rate, regular rhythm, no murmur, no gallops. ABDOMEN: Soft, positive bowel sounds, nondistended, no guarding, nontender, no rebound, no masses, RECTAL: Deferred. GENITAL: Deferred. NEUROLOGICAL: Gross motor function intact sensory function intact, Appropriate for age. MUSCULOSKELETAL: low back nontender, full range of motion. EXTREMITIES: Redness to the left lower extremity, with weeping excoriation yellowish in color no crepitus nonfluctuant with tenderness, full range of motion. Dorsalis pedis and posterior tibialis pulses +1 SKIN: Color pink, dry, no rash, no lacerations, no abrasions, no contusions. LYMPHATICS: Deferred. Course Quality Measures none Orders Category Date Time Status COVID-19 Screening Questionnaire NOW Care 08/15/24 14:[address] Screening NOW Care 08/15/24 12:15 Active Decision to Admit X1 Care 08/15/24 14:[address] lower leg LT w con Stat Exams 08/15/24 12:14 Completed Blood Culture (Lab) Stat Lab 08/15/24 09:30 Received CBC Stat Lab 08/15/24 09:30 Completed CMP [Comprehensive Metabolic Panel] Stat Lab 08/15/24 09:30 Completed Lactate (Lactic Acid) Stat Lab 08/15/24 09:30 Completed Procalcitonin Stat Lab 08/15/24 09:30 Completed Piper/Tazo 3.375 gm Premix [Zosyn] Med 08/15/24 12:14 Discontinued 3.375 gm in 50 ml IV X1 Vancomycin/Ns 1 gm Ivpb 200 ml Med 08/15/24 12:30 Discontinued IV X1 Vancomycin/Ns 1 gm Ivpb 200 ml Med 08/15/24 14:10 Discontinued IV X1 Vital Signs Vital signs: Vital Signs Temperature 98.3 F 08/15/24 08:53 Pulse Rate 100 08/15/24 08:53 Respiratory Rate 20 08/15/24 08:53 Blood Pressure 145/82 H 08/15/24 08:53 Pulse Oximetry (%) 95 08/15/24 08:53 Oxygen Delivery Method Room Air 08/15/24 08:53 Wound / Laceration MDM Narrative MDM Narrative:: 49 year old male with past medical history significant for 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 Patient was diagnosed with cellulitis and seen in this emergency room 4 days ago was given IV Zosyn, and was discharged home on Keflex and Bactrim. Patient been taking the medication. Yesterday patient developed a fever. Went to PCP and was referred here for IV antibiotic. Patient is currently taking Eliquis for PE. Ultrasound was done of the left lower extremity 4 days ago and negative for DVT. Laboratory workup all came back unremarkable. No leukocytosis however CT scan of the lower leg with contrast showed significant cellulitis moderate, no abscess noted no bony abnormality noted. Patient received IV Zosyn and Vanco. Discussed case with hospitalist, who admitted patient Patient data External records reviewed:: None Clinical information provided by:: patient Social determinants that could affect healthcare access:: none Patient has the following chronic illnesses:: None How is presenting disease/condition affected by chronic disease/condition?: no chronic disease Evaluation data The following diagnostics were reviewed and interpreted by me:: lab results and radiology exam(s) Lab and/or radiology exams considered but not ordered:: None Interpretation Summary: See results [facility] Medications / Prescriptions Medications or Prescriptions considered but not ordered:: None Medication administrations:: Medication Administration History Acetaminophen (Acetaminophen 325 Mg Tablet) 650 mg PO Q6H PRN PRN Reason: PAIN OR FEVER > 101 Stop: 09/14/24 14:51 Apixaban (Apixaban 2.5 Mg Tablet) 5 mg PO BID [facility] Stop: 09/05/24 20:59 Last Admin: 08/15/24 21:25 Dose: 5 mg Documented By: GABI Hydrochlorothiazide (Hydrochlorothiazide 12.5 Mg Capsule) 25 mg PO QDAY [facility] Stop: 09/15/24 08:59 Lactated Ringer's (Lactated Ringers) 1,000 mls @ 75 mls/hr IV .[id number] ONE Stop: 08/16/24 04:13 Last Admin: 08/15/24 15:55 Dose: 75 mls/hr Documented By: WALI Cefazolin Sodium (Ancef 2gm Ivpb) 2 gm in 100 mls @ 100 mls/hr IV Q8HR [facility] Stop: 08/22/24 20:59 Last Admin: 08/15/24 21:25 Dose: 100 mls/hr Documented By: GABI Labetalol HCl (Labetalol 100 Mg Tablet) 200 mg PO BID [facility] Stop: 09/14/24 20:59 Last Admin: 08/15/24 21:24 Dose: 200 mg Documented By: GABI Ondansetron HCl (Ondansetron Inj 2 Mg/Ml Inj 2 Ml) 4 mg IVP Q6H PRN; Protocol PRN Reason: NAUSEA OR VOMITING Stop: 09/14/24 14:51 Pantoprazole Sodium (Pantoprazole 40 Mg Tablet) 40 mg PO QDAY [facility] Stop: 09/14/24 14:59 Last Admin: 08/15/24 15:55 Dose: 40 mg Documented By: WALI Sennosides (Senna Tablet) 1 tab PO QDAY [facility]; Protocol Stop: 09/15/24 08:59 Valsartan (Valsartan 80 Mg Tablet) 320 mg PO QDAY [facility] Stop: 09/15/24 08:59 Discontinued Medications Furosemide (Furosemide Inj 10 Mg/Ml 4ml Vial) 40 mg IVP X1 ONE Stop: 08/15/24 15:02 Last Admin: 08/15/24 15:50 Dose: 40 mg Documented By: WALI Piperacillin/Tazobactam/Dextrose (Zosyn) 3.375 gm in 50 mls @ 100 mls/hr IV X1 ONE Stop: 08/15/24 12:43 Last Infusion: 08/15/24 13:55 Dose: Infused Documented By: Admin: 08/15/24 12:47 Dose: 100 mls/hr Documented By: WALI Vancomycin/Sodium Chloride (Vancomycin/Ns 1 Gm Ivpb) 200 mls @ 120 mls/hr IV X1 ONE Stop: 08/15/24 14:09 Last Infusion: 08/15/24 14:45 Dose: Infused Documented By: Admin: 08/15/24 12:48 Dose: 120 mls/hr Documented By: WALI Vancomycin/Sodium Chloride (Vancomycin/Ns 1 Gm Ivpb) 200 mls @ 120 mls/hr IV X1 ONE Stop: 08/15/24 15:49 Last Infusion: 08/15/24 17:11 Dose: Infused Documented By: Admin: 08/15/24 14:53 Dose: 120 mls/hr Documented By: WALI Vancomycin IV, Lasix IV, and Zosyn IV Consultations Consultation(s) initiated? (list below): No Diagnosis Wound Differential Diagnosis: abscess and other (Lower leg cellulitis,) Most likely diagnosis given after review of the tests above:: Lower leg cellulitis, failed antibiotic treatment Admission Indicated Admission indicated?: not indicated Admission Request Was there a request for admission?: Yes Admission Attestation Admission request attestation: Discussed case with [Dr. Carrera] from Hospitalist service regarding admission. Discussed patients ED course, exam findings, labs, and radiology results. The Hospitalist [agrees] to accept the patient for admission. Disposition Plan Disposition Plan: Admit Discharge Plan Plan Patient Disposition: Admit Acute Care w/in Hospital Problem List Clinical Impression: Cellulitis of lower leg, Failure of outpatient treatment
--- NOTE | 2024-08-15 12:14 | XR_ITS ---
Examination: CT left lower extremity with intravenous contrast, 2-D sagittal reconstructions. 2-D coronal reconstructions. 3-D reconstructions. Date and time of exam:August 15, 2024 at 1332 hours INDICATIONS: Left lower leg swelling and pain with drainage beginning 3 days ago CTDI: vol (mGy):8.29 DLP: (mGycm):594 Technique: Multiple 1.25 mm axial sections of the left lower extremity with 60 cc Isovue-370 have been obtained. 2-D sagittal and coronal reconstructions have been obtained. 3-D reconstructions have been obtained. Low dose protocols were performed. One or more of the following dose reduction techniques were used; automated exposure control, adjustment of the mA and/or KV according to patient size, use of iterative reconstruction technique. Findings: Edema in the subcutaneous fatty tissue medial posterior and anterior lower extremity, most pronounced adjacent to the anterior margin of the tibia No soft tissue abscess No huber cortical bone destruction IMPRESSION: Significant cellulitis pattern Negative for osteomyelitis Negative for soft tissue abscess
[2024-08-15] MEDS: PIPER/TAZO 3.375 GM PREMIX 3.375 GM/50 ML BAG IV (12:47)
[2024-08-15] MEDS: VANCOMYCIN/NS 1 GM IVPB 200 ML IV ×2 (12:48→14:53)
--- NOTE | 2024-08-15 15:20 | ESHP_ITS ---
Documentation for date of: 08/15/24 HPI History of Present Illness History of present illness: 49-year-old male with past medical history of pulmonary embolism on Eliquis, morbidly obese with BMI of 61, history of hypertension presented to ED with chief complaints of left lower extremity redness, drainage that was progressively getting worse. Per patient on Sunday he noticed some redness on left lower extremity, however does not recall any recent insect bite, any trauma/injury. Patient presented to ED on Sunday, ultrasound of the leg was done which was negative for DVT, patient discharged from ED with p.o. antibiotics. However patient stated that symptoms did not appear to be improving. He developed fever, chills, mild nausea, contacted PCP regarding current symptoms and worsening left lower redness and drainage, and was sent to ED by PCP for further evaluation. On presentation patient was hemodynamically stable, labs were insignificant, negative for leukocytosis, lactic acid was negative, slightly elevated Pro-Jw, lower extremity CT revealed significant cellulitis pattern, negative for osteomyelitis or soft tissue abscess. Patient was given vancomycin and Zosyn, and was admitted for cellulitis treatment and management requiring IV antibiotics. Past medical history as above Past surgical history none Allergies NKDA Medication Eliquis, labetalol, valsartan, hydrochlorothiazide Family history unremarkable Social history lives with Review of Systems Review of Systems Systems Reviewed: All systems reviewed, normal except as documented Exam Vital Signs Temp Pulse Resp BP Pulse Ox O2 Del Method 98.5 F 87 18 142/79 H 97 Room Air 08/15/24 14:08/15/24 14:08/15/24 14:08/15/24 14:08/15/24 14:08/15/24 14:00 Narrative Exam GENERAL: no acute distress, AAO x3, obese male, HEENT: Head AT/ NC. Mucous membranes moist. PERRL. NECK: Supple, no lymphadenopathy, no carotid bruits. CARDIOVASCULAR: RRR. Normal S1/S2, No m/r/g. No pitting edema of bilateral LEs. RESPIRATORY: CTAB. No wheezing, rhonchi, crackles. GASTROINTESTINAL: Abdomen soft, non tender no palpable masses. Bowel sounds present in all 4 quadrants. MUSCULOSKELETAL:?erythema in the left lower extremity, extending to the mid- mack, without well-defined borders. The area is warm to the touch, and a small bolus is noted on the posterior side. There is serosanguineous drainage observed from the affected area. Additionally, the patient has bilateral stasis dermatitis. NEUROLOGICAL: CN II-XII grossly intact. No focal deficits. Sensation intact, symmetric. PSYCHIATRIC: Awake and alert, not agitated, normal mood and affect. INTEGUMENTARY: No obvious rashes, no jaundice, normal turgor. Results: Labs 08/16/24 05:25 08/16/24 05:25 Labs: Short CBC 08/15/24 Range/Units 09:30 WBC 8.8 (3.8-10.6) Thou/mm3 Hgb 12.5 L (13.5-16.0) g/dL Hct 37.7 L (41.0-53.0) % Plt Count 216 D (140-440) Thou/mm3 BMP 08/15/24 09:30 Sodium 136 Potassium 3.7 Chloride 101 Carbon Dioxide 27.1 BUN 22 Creatinine 1.3 Glucose 132 H Calcium 8.9 Liver Function 08/15/24 Range/Units 09:30 Total Bilirubin 0.5 (0.3-1.2) mg/dL AST 15 (0-34) U/L ALT 18 (10-49) U/L Alkaline Phosphatase 80 (46-116) U/L Albumin 4.0 (3.5-5.0) gm/dL Quality Measures Quality Measures VTE prophylaxis Medications Home Medications and Allergies Home Medications ?Medication ?Instructions ?Recorded ?Confirmed ?Type hydrochlorothiazide 25 mg tablet 25 mg PO QDAY 5 08/15/24 History labetalol 200 mg tablet 200 mg PO Q12H 08/15/2407/21 History omeprazole 40 mg capsule,delayed 40 mg PO QDAY 5 08/15/24 History release valsartan 320 mg tablet 320 mg PO QDAY 08/15/2407/21 History Allergies Allergy/AdvReac Type Severity Reaction Status Date / Time No Known Allergies Allergy Verified 08/15/24 08:28 Visit Medications Acetaminophen (Acetaminophen 325 Mg Tablet) 650 mg PO Q6H PRN PRN Reason: PAIN OR FEVER > 101 Stop: 09/14/24 14:51 Apixaban (Apixaban 2.5 Mg Tablet) 5 mg PO BID BENJAMIN Stop: 09/05/24 20:59 Hydrochlorothiazide (Hydrochlorothiazide 12.5 Mg Capsule) 25 mg PO QDAY BENJAMIN Stop: 09/15/24 08:59 Vancomycin/Sodium Chloride (Vancomycin/Ns 1 Gm Ivpb) 200 mls @ 120 mls/hr IV X1 ONE Stop: 08/15/24 15:49 Last Admin: 08/15/24 14:53 Dose: 120 mls/hr Lactated Ringer's (Lactated Ringers) 1,000 mls @ 75 mls/hr IV .[id number] ONE Stop: 08/16/24 04:13 Cefazolin Sodium (Ancef 2gm Ivpb) 2 gm in 100 mls @ 100 mls/hr IV Q8HR BENJAMIN Stop: 08/22/24 20:59 Labetalol HCl (Labetalol 100 Mg Tablet) 200 mg PO BID [facility] Stop: 09/14/24 20:59 Ondansetron HCl (Ondansetron Inj 2 Mg/Ml Inj 2 Ml) 4 mg IVP Q6H PRN; Protocol PRN Reason: NAUSEA OR VOMITING Stop: 09/14/24 14:51 Pantoprazole Sodium (Pantoprazole 40 Mg Tablet) 40 mg PO QDAY [facility] Stop: 09/14/24 14:59 Sennosides (Senna Tablet) 1 tab PO QDAY [facility]; Protocol Stop: 09/15/24 08:59 Valsartan (Valsartan 80 Mg Tablet) 320 mg PO QDAY [facility] Stop: 09/15/24 08:59 Discontinued Medications Furosemide (Furosemide Inj 10 Mg/Ml 4ml Vial) 40 mg IVP X1 ONE Stop: 08/15/24 15:02 Piperacillin/Tazobactam/Dextrose (Zosyn) 3.375 gm in 50 mls @ 100 mls/hr IV X1 ONE Stop: 08/15/24 12:43 Last Infusion: 08/15/24 13:55 Dose: Infused Vancomycin/Sodium Chloride (Vancomycin/Ns 1 Gm Ivpb) 200 mls @ 120 mls/hr IV X1 ONE Stop: 08/15/24 14:09 Last Infusion: 08/15/24 14:45 Dose: Infused Assessment & Plan Plan 49-year-old male with past medical history of hypertension, PE on Eliquis was admitted for left lower extremity cellulitis treatment and management #LLE cellulitis Patient presented with chief complaints of left lower extremity redness and drainage that was progressively getting worse Patient failed outpatient p.o. antibiotics treatment Physical exam is positive for?erythema in the left lower extremity, extending to the mid-mack, without well-defined borders. The area is warm to the touch, and a small bolus is noted on the posterior side. There is serosanguineous drainage observed from the affected area. Additionally, the patient has bilateral stasis dermatitis. Patient also complaining of systemic symptoms such as fever, chills, generalized weakness which has resolved on the day of presentation In the ED patient received Vanco and Zosyn with IVF - Continue with cefazolin gram every 8 hours - Low suspicion for MRSA - Follow-up with the blood culture - Daily CBC CMP - Wound care - Leg elevation #BL LE Edema #chronic stasis dermatitis - X1 IVF lasix - Echo Chronic conditions #HTN -continue home HCTZ, -continue home labetolol #PE -continue Elequise Disposition:medsurge DVT prophylaxis: elequise GI prophylaxis: PPI Diet: cardiac Lines: PIV CODE STATUS:Full code Patient care was discussed with attending physician Dr. Deandre Linares MD PGY-2 I have carefully reviewed this document. Due to imperfections in the voice software, there could be grammatical errors including phonetic/typographic errors. This in no way compromises the medical care the patient is receiving Attending Provider Attestation/Addendum I have examined the patient, reviewed labs and imaging findings, discussed the case with the resident(s), and reviewed entered orders. I agree with the plan of care as outlined in this note, with these additional summaries/recommendations: After examination of the patient and review of the clinical data, I feel that this patient needs admission to the hospital for further treatment and evaluation. Patient is a 49-year-old male with a medical history of deep vein thrombosis/pulmonary embolism on Eliquis, primary hypertension, and obesity who presents to [facility] emergency department on 08/15/2024 with chief complaint of worsening left lower extremity cellulitis. Patient seen at bedside. He reports he was seen in the emergency room 4-days prior for left lower extremity cellulitis and was prescribed oral antibiotics. Patient has been taking antibiotics as prescribed but despite this the left lower extremity cellulitis has worsened. Patient has had increasing pain, swelling, and redness. Patient started on broad-spectrum antibiotics which we will continue. Blood cultures taken and follow-up results when available. Order wound care. Patient also noted to have bilateral lower extremity swelling and we will give one-time dose of Lasix and order echocardiogram to rule out congestive heart failure. Continue home antihypertensives. Patient updated on the plan and in agreement. All questions answered to satisfaction. Please see residents note for additional details of management. Dr. Deandre MD
[2024-08-15] MEDS: FUROSEMIDE INJ 10 MG/ML 4ML VIAL 40 MG IVP (15:50)
[2024-08-15] MEDS: PANTOPRAZOLE 40 MG TABLET PO (15:55)
[2024-08-15] MEDS: RINGERS LACTATED 1000 ML 1,000 ML 75 ML IV (15:55)
--- NOTE | 2024-08-15 16:06 | PC.CC ---
Patient is a 49 year-old male who presents to the hospital for Cellulitis. FLOYDWMelisa and WORKDAY DIRECTOR Student Linette made [id number] contact with patient. ASW introduced self, role, and reason for visit. Patient appeared alert and oriented to self, location, and situation. Patient provided consent for WORKDAY DIRECTOR to remain in the room during assessment. Patient was pleasant and engaged in initial assessment. Patient confirmed information on demographics and reports to living with his mother, Rachel Peraza . Patient reports that in the event he is unable to make his own medical decisions his mother would be his medical decision maker. Patient reports he is employed with [employer]. Patient reports he is able to ambulate independently and complete his own ADLs. The patient does not require any DME such as oxygen and is not a dialysis patient. Patient's primary provider is Shila Mendez and uses [facility]. Upon discharge the patient plans to return back home. media services director to follow up with any discharge needs.
[2024-08-15] MEDS: LABETALOL 100 MG TABLET 200 MG PO (21:24)
[2024-08-15] MEDS: ceFAZolin/D5W 2 GM IV 2 GM/100 ML BAG IV (21:25)
[2024-08-15] MEDS: APIXABAN 2.5 MG TABLET 5 MG PO (21:25)
[2024-08-16] VITALS (8 sets, daily range): BP systolic 108–157; BP diastolic 63–88; PULSE 84–100; RESP 18–20; TEMP 36.6–36.9; O2SAT 95–96
[2024-08-16] MEDS: ceFAZolin/D5W 2 GM IV 2 GM/100 ML BAG IV ×3 (05:21→21:10)
[2024-08-16 06:36] LABS: Basophils % (Auto) 0 % (0-2.5); Eosinophils # (Auto) 0.1 Thou/mm3 (0.0-0.5); Eosinophils % (Auto) 2 % (0-10); Hematocrit 37.1 % (41.0-53.0); Hemoglobin 12.3 g/dL (13.5-16.0); Immature Granulocytes % (Auto) 2 % (0-0); Immature Granulocytes Auto 0.17 Thou/mm3 (0.00-0.00); Lymphocytes # (Auto) 1.3 Thou/mm3 (1.0-4.8); Lymphocytes % (Auto) 16 % (10-50); Mean Corpuscular HGB Conc 33.2 g/dl (31.0-37.0); Mean Corpuscular Hemoglobin 27.9 pg (25.0-35.0); Mean Corpuscular Volume 84 fL (80-100); Monocytes # (Auto) 0.6 Thou/mm3 (0.0-0.8); Monocytes % (Auto) 8 % (0-12); Neutrophils # (Auto) 5.9 Thou/mm3 (1.8-7.7); Neutrophils % (Auto) 73 % (37-80); Nucleated Red Blood Cell % 0 /100 WBC (0); Platelet Count 249 Thou/mm3 (140-440); RDW Standard Deviation 46.2 fL (35.1-43.9); Red Blood Count 4.41 Miln/mm3 (4.50-5.90); White Blood Count 8.1 Thou/mm3 (3.8-10.6)
[2024-08-16 06:55] LABS: Glucose Estimated Average 117 mg/dL (80-131); Hemoglobin A1C 5.7 % Hgb (4.8-6.0)
[2024-08-16 07:03] LABS: Alanine Aminotransferase 14 U/L (10-49); Albumin, Serum 3.9 gm/dL (3.5-5.0); Albumin/Globulin Ratio 1.1 (1.2-2.2); Alkaline Phosphatase 75 U/L (46-116); Anion Gap 8 (7-16); Aspartate Amino Transferase 12 U/L (0-34); BUN/Creatinine Ratio 15 Ratio (12-20); Bilirubin,Total 0.5 mg/dL (0.3-1.2); Blood Urea Nitrogen 21 mg/dL (9-23); Calcium 9.1 mg/dL (8.3-10.6); Calcium (Corrected) 9.2 mg/dL (8.5-10.1); Carbon Dioxide 29.3 mMol/L (20.0-31.0); Cardiac Risk Estimate 4.7 RATIO (4.0-6.7); Chloride 100 mMol/L (98-107); Cholesterol 117 mg/dL (132-200); Creatinine (Component) 1.4 mg/dL (0.6-1.3); Estimated Creatinine Clearance 108.2 mL/min (>60); Globulin 3.4 gm/dL (2.3-3.5); Glucose 119 mg/dL (74-106); HDL Cholesterol 25 mg/dL (40-60); LDL Cholesterol,Calculated 64 mg/dL (0-130); Magnesium 2.1 mg/dL (1.6-2.6); Osmolality,Calculated 277 (275-295); Phosphorous 3.3 mg/dL (2.4-5.1); Potassium 3.8 mMol/L (3.4-5.1); Sodium 137 mMol/L (136-145); Total Protein 7.3 gm/dL (5.7-8.2); Triglycerides 141 mg/dL (30-150); eGFR > 60 See Note
[2024-08-16 07:11] LABS: INR 1.2 (0.9-1.3); Partial Thromboplastin Time 50.6 Seconds (22.0-36.0); Prothrombin Time 12.9 Seconds (9.0-12.2)
[2024-08-16] MEDS: VALSARTAN 80 MG TABLET 320 MG PO (08:51)
[2024-08-16] MEDS: hydroCHLOROthiazide 12.5 MG CAPSULE 25 MG PO (08:51)
[2024-08-16] MEDS: LABETALOL 100 MG TABLET 200 MG PO ×2 (08:51→21:09)
[2024-08-16] MEDS: PANTOPRAZOLE 40 MG TABLET PO (08:52)
[2024-08-16] MEDS: APIXABAN 2.5 MG TABLET 5 MG PO ×2 (08:52→21:09)
[2024-08-16] MEDS: DOXYCYCLINE 100 MG TABLET PO ×2 (08:52→21:10)
--- NOTE | 2024-08-16 15:41 | PD.HHPROG ---
Documentation for date of: 08/16/24 Subjective - Hospitalist Subjective Interval history: Patient seen at bedside. No acute overnight events. Patient reports some relief in left lower extremity discomfort/pain. He feels the swelling and redness is decreasing compared to yesterday. Discussed with patient that we will continue IV antibiotics and will need to await final blood culture results before he can be safely discharged. Patient is currently hemodynamically stable and blood pressure well-controlled. He denies headache, chest pain, shortness of breath, fever/chills, palpitations, abdominal pain, and no GI or urinary symptoms to report at this time. Review of Systems Review of Systems Systems Reviewed: All systems reviewed, normal except as documented Exam Vital Signs Temp Pulse Resp BP Pulse Ox O2 Del Method 98.4 F 84 20 122/72 96 Room Air 08/16/24 12:00 08/16/24 12:00 08/16/24 12:00 08/16/24 12:00 08/16/24 12:00 08/16/24 12:00 Narrative GENERAL: no acute distress, AAO x3, obese male, HEENT: Head AT/ NC. Mucous membranes moist. PERRL. NECK: Supple, no lymphadenopathy, no carotid bruits. CARDIOVASCULAR: RRR. Normal S1/S2, No m/r/g. No pitting edema of bilateral LEs. RESPIRATORY: CTAB. No wheezing, rhonchi, crackles. GASTROINTESTINAL: Abdomen soft, non tender no palpable masses. Bowel sounds present in all 4 quadrants. MUSCULOSKELETAL: erythema in the left lower extremity, extending to the mid-mack, without well-defined borders. The area is warm to the touch, and a small bolus is noted on the posterior side. There is serosanguineous drainage observed from the affected area. Additionally, the patient has bilateral stasis dermatitis. NEUROLOGICAL: CN II-XII grossly intact. No focal deficits. Sensation intact, symmetric. PSYCHIATRIC: Awake and alert, not agitated, normal mood and affect. INTEGUMENTARY: No obvious rashes, no jaundice, normal turgor. Objective - Hospitalist Labs Diagram: 08/16/24 05:25 08/16/24 05:25 Labs: Laboratory Results - last 24 hr 08/16/24 05:25 WBC 8.1 RBC 4.41 L Hgb 12.3 L Hct 37.1 L MCV 84 MCH 27.9 MCHC 33.2 RDW Std Deviation 46.2 H Plt Count 249 D Neut % (Auto) 73 Lymph % (Auto) 16 [place] % (Auto) 8 Eos % (Auto) 2 Baso % (Auto) 0 Neut # (Auto) 5.9 Lymph # (Auto) 1.3 [place] # (Auto) 0.6 Eos # (Auto) 0.1 Baso # (Auto) 0.0 Immature Gran # (Auto) 0.17 H Absolute Nucleated RBC 0.00 Immature Gran % 2 H Nucleated RBC % 0 PT 12.9 H INR 1.2 APTT 50.6 H Sodium 137 Potassium 3.8 Chloride 100 Carbon Dioxide 29.3 Anion Gap 8 BUN 21 Creatinine 1.4 H Estim Creat Clear Calc 108.2 eGFR > 60 BUN/Creatinine Ratio [address] Glu mg/dL 117 Hemoglobin A1c 5.7 Calculated Osmolality 277 Calcium 9.1 Corrected Calcium 9.2 Phosphorus 3.3 Magnesium 2.1 Total Bilirubin 0.5 AST 12 ALT 14 Alkaline Phosphatase 75 Total Protein 7.3 Albumin 3.9 Globulin 3.4 Albumin/Globulin Ratio 1.1 L Triglycerides 141 Cholesterol 117 L LDL Cholesterol, Calc 64 HDL Cholesterol 25 L Cholesterol/HDL Ratio 4.7 Assessment & Plan Plan: 49-year-old male with past medical history of hypertension, PE on Eliquis was admitted for left lower extremity cellulitis treatment and management #LLE cellulitis Patient presented with chief complaints of left lower extremity redness and drainage that was progressively getting worse Patient failed outpatient p.o. antibiotics treatment Physical exam is positive for erythema in the left lower extremity, extending to the mid-mack, without well-defined borders. The area is warm to the touch, and a small bolus is noted on the posterior side. There is serosanguineous drainage observed from the affected area. Additionally, the patient has bilateral stasis dermatitis. Patient also complaining of systemic symptoms such as fever, chills, generalized weakness which has resolved on the day of presentation In the ED patient received Vanco and Zosyn with IVF Plan: Left lower extremity cellulitis improving. Continue IV cefazolin and doxycycline. Continue leg elevation and bedside wound care. Blood cultures preliminary showing no growth at 24 hours although we will wait 48-hour donte before results are reliable. #BL LE Edema #chronic stasis dermatitis - X1 IVF lasix - Echo #HTN -continue home HCTZ, -continue home labetolol #PE -continue Eliquis Disposition: remain hospitalized for IV antibiotics DVT prophylaxis: Eliquis GI prophylaxis: PPI Diet: cardiac Lines: PIV CODE STATUS:Full code Dr. Deadnre MD Time Spent with Patient Time: Total time spent is greater than 50% in coordination of care (as documented) at patient's floor/unit and/or counseling patient: Time with patient: Greater than 35 minutes Reason for Continued Stay Reason for continued stay: IV antibiotics Quality Measures Quality Measures none
[2024-08-17 00:25] VITALS: BP 127/68; PULSE 90; RESP 18; TEMP 36.4; O2SAT 96
[2024-08-17 04:30] VITALS: BP 157/72; PULSE 79; RESP 17; TEMP 36.7; O2SAT 95
[2024-08-17] MEDS: ceFAZolin/D5W 2 GM IV 2 GM/100 ML BAG IV (05:23)
[2024-08-17 06:27] LABS: Basophils % (Auto) 0 % (0-2.5); Eosinophils # (Auto) 0.1 Thou/mm3 (0.0-0.5); Eosinophils % (Auto) 2 % (0-10); Hematocrit 34.8 % (41.0-53.0); Hemoglobin 11.5 g/dL (13.5-16.0); Immature Granulocytes % (Auto) 4 % (0-0); Immature Granulocytes Auto 0.32 Thou/mm3 (0.00-0.00); Lymphocytes # (Auto) 1.2 Thou/mm3 (1.0-4.8); Lymphocytes % (Auto) 16 % (10-50); Mean Corpuscular Hemoglobin 27.6 pg (25.0-35.0); Mean Corpuscular Volume 84 fL (80-100); Monocytes # (Auto) 0.6 Thou/mm3 (0.0-0.8); Monocytes % (Auto) 7 % (0-12); Neutrophils # (Auto) 5.3 Thou/mm3 (1.8-7.7); Neutrophils % (Auto) 70 % (37-80); Nucleated Red Blood Cell % 0 /100 WBC (0); Platelet Count 269 Thou/mm3 (140-440); RDW Standard Deviation 45.4 fL (35.1-43.9); Red Blood Count 4.16 Miln/mm3 (4.50-5.90); White Blood Count 7.6 Thou/mm3 (3.8-10.6)
[2024-08-17 07:20] LABS: Alanine Aminotransferase 10 U/L (10-49); Albumin, Serum 3.8 gm/dL (3.5-5.0); Albumin/Globulin Ratio 1.2 (1.2-2.2); Alkaline Phosphatase 67 U/L (46-116); Anion Gap 7 (7-16); Aspartate Amino Transferase 13 U/L (0-34); BUN/Creatinine Ratio 13 Ratio (12-20); Bilirubin,Total 0.5 mg/dL (0.3-1.2); Blood Urea Nitrogen 15 mg/dL (9-23); Calcium 8.9 mg/dL (8.3-10.6); Calcium (Corrected) 9.1 mg/dL (8.5-10.1); Carbon Dioxide 28.6 mMol/L (20.0-31.0); Chloride 101 mMol/L (98-107); Creatinine (Component) 1.2 mg/dL (0.6-1.3); Estimated Creatinine Clearance 126.2 mL/min (>60); Globulin 3.1 gm/dL (2.3-3.5); Glucose 112 mg/dL (74-106); Magnesium 1.9 mg/dL (1.6-2.6); Osmolality,Calculated 275 (275-295); Phosphorous 2.5 mg/dL (2.4-5.1); Potassium 3.6 mMol/L (3.4-5.1); Sodium 137 mMol/L (136-145); Total Protein 6.9 gm/dL (5.7-8.2); eGFR > 60 See Note
[2024-08-17 07:37] VITALS: BP 124/75; PULSE 84; RESP 17; TEMP 36.7; O2SAT 95
[2024-08-17 08:50] VITALS: BP 124/75; PULSE 84
[2024-08-17] MEDS: LABETALOL 100 MG TABLET 200 MG PO (08:50)
[2024-08-17] MEDS: VALSARTAN 80 MG TABLET 320 MG PO (08:50)
[2024-08-17] MEDS: hydroCHLOROthiazide 12.5 MG CAPSULE 25 MG PO (08:50)
[2024-08-17] MEDS: DOXYCYCLINE 100 MG TABLET PO (08:51)
[2024-08-17] MEDS: APIXABAN 2.5 MG TABLET 5 MG PO (08:51)
[2024-08-17] MEDS: PANTOPRAZOLE 40 MG TABLET PO (08:51)
[2024-08-17 10:26] VITALS: PULSE 93; RESP 16; RESP 96
--- NOTE | 2024-08-17 11:04 | ESDS_ITS ---
Planned Discharge Date 08/17/24 DS: Providers Provider Date of admission: 08/15/24 14:52 Primary care physician: Shila Mendez MD Admitting Provider: Andrew Carrera MD Attending Provider on Admission: Andrew Carrera MD Attending Provider on DC: Radha Linares MD Discharging Provider: Radha Linares MD DS: Diagnosis Problem List Completed Was Problem List Reviewed/Reconciled?: Yes Hospital Course Hospital Course Hospital course: 49-year-old male with past medical history of pulmonary embolism Eliquis, morbidly obese with BMI of 61, history of hypertension presents to ED with chief complaints of left lower extremity redness, drainage that was progressively getting worse. Patient stated that he failed outpatient p.o. antibiotic course, and symptoms did not appear to be improving. Physical exam notable for erythema in the left lower extremity, extending to the mid-mack, without well-defined borders. The area is warm to the touch, and a small bolus is noted on the posterior side. There is serosanguineous drainage observed from the affected area. Additionally, the patient has bilateral stasis dermatitis.Labs were insignificant on presentation, patient was hemodynamically stable, lower extremity CT revealed significant cellulitis pattern, negative for osteomyelitis or soft tissue abscess. Patient was admitted for cellulitis treatment and management requiring IV antibiotics. During hospital stay patient condition significantly improved pain, swelling and erythema significantly subsided. Wound care was closely following the case. Blood cultures negative, MRSA is negative, chronic condition were managed accordingly. Plan is to discharge patient today home, with p.o. antibiotics for 7 days to complete cellulitis treatment course, patient was instructed to keep the area clean and dry, return to ED anytime symptoms worsens. Continue the rest of the home medication as prescribed, follow-up with PCP in 1 to 2 weeks after discharge. Also patient was advised to follow-up with cardiology and obtain outpatient echo. Patient stated that he he has upcoming cardiology Dr. Nunez appointment in 1 week. All questions and concerns were addressed. Patient gave verbalized understanding. #Left lower extremity cellulitis #Chronic stasis dermatitis #Hypertension #PE on Eliquis. Patient care was discussed with attending physician Dr. Deandre Linares MD PGY-2 I have carefully reviewed this document. Due to imperfections in the voice software, there could be grammatical errors including phonetic/typographic errors. This in no way compromises the medical care the patient is receiving Time Spent with Patient Time attestation: Total time spent providing and/or coordinating discharge services: Time spent: Greater than 30 minutes Exam Vital Signs Temp Pulse Resp BP Pulse Ox O2 Del Method 98.0 F 93 16 124/75 95 Room Air 08/17/24 07:37 08/17/24 10:26 08/17/24 10:26 08/17/24 08:50 08/17/24 07:37 08/17/24 07:37 Narrative Exam GENERAL: no acute distress, AAO x3, obese male, HEENT: Head AT/ NC. Mucous membranes moist. PERRL. NECK: Supple, no lymphadenopathy, no carotid bruits. CARDIOVASCULAR: RRR. Normal S1/S2, No m/r/g. No pitting edema of bilateral LEs. RESPIRATORY: CTAB. No wheezing, rhonchi, crackles. GASTROINTESTINAL: Abdomen soft, non tender no palpable masses. Bowel sounds present in all 4 quadrants. MUSCULOSKELETAL:?erythema in the left lower extremity, extending to the mid- mack, without well-defined borders. The area is warm to the touch, and a small bolus is noted on the posterior side. There is serosanguineous drainage observed from the affected area. Additionally, the patient has bilateral stasis dermatitis. NEUROLOGICAL: CN II-XII grossly intact. No focal deficits. Sensation intact, symmetric. PSYCHIATRIC: Awake and alert, not agitated, normal mood and affect. INTEGUMENTARY: No obvious rashes, no jaundice, normal turgor. Discharge Plan Plan Patient Disposition: HOME (Self Care) Prescriptions/Referrals Prescriptions/Med Rec: New amoxicillin-pot clavulanate 875-125 mg tablet 1 tab PO BID 7 Days Qty: 14 0RF doxycycline hyclate 100 mg capsule 100 mg PO BID Qty: 7 0RF Continued Eliquis 5 MG tablet 5 mg PO BID Qty: 60 0RF Rx Instructions: start eliquis 5 mg twice a day after 3 days labetalol 200 mg tablet 200 mg PO Q12H Patient Comments: TAKE 1 TABLET BY MOUTH TWICE A DAY hydrochlorothiazide 25 mg tablet 25 mg PO QDAY Patient Comments: TAKE 1 TABLET BY MOUTH EVERY DAY IN THE MORNING FOR 30 DAYS valsartan 320 mg tablet 320 mg PO QDAY Patient Comments: TAKE 1 TABLET BY MOUTH EVERY DAY omeprazole 40 mg capsule,delayed release(DR/EC) 40 mg PO QDAY Patient Comments: TAKE 1 CAPSULE BY MOUTH EVERY DAY 30 MINUTES BEFORE MORNING MEAL Discontinued cephalexin 500 mg capsule 500 mg PO Q6H 10 Days Qty: 40 0RF sulfamethoxazole-trimethoprim [Bactrim DS] 800-160 mg tablet 1 tab PO BID 10 Days Qty: 20 0RF Referrals: Shila Mendez MD [Primary Care Provider] - Patient/Caregiver Discharge Instructions Other Discharge Activity Instructions:: take Augmentin 1 tablet twice daily for 7 days Take doxycycline 100 mg twice daily for 7 days to complete antibiotic course Continue home medication as prescribed Weight discontinue your Keflex and Bactrim, as currently you are not different antibiotic regimen Close monitor blood pressure Keep left leg elevated much as possible until swelling subsides Repeat CBC/CMP in 1 week after discharge Follow-up outpatient, obtain echo follow-up outpatient with Dr. Nunez in 1 to 2 weeks after discharge Return to ED anytime symptoms worsens. Education Materials: Discharge Instructions for Cellulitis Print Language: Polish Stand Alone Forms: Lila Award Info., Patient Portal Info Letter Discharge Order Discharge Orders: Discharge (Routine); Ordered 08/17/24 Ordered By: Radha Linares Quality Discharge Quality Measures VTE prophylaxis Attestestation MD Attestation I have examined the patient, reviewed labs and imaging findings, discussed the case with the resident(s), and reviewed entered orders. I agree with the plan of care as outlined in this note. Time Spent: [address] Deandre MD
--- NOTE | 2024-08-17 11:31 | PC.NURSE ---
CORKY tate put in at 10:30 by Vijay. Patient and family member want to speak to a doctor before the patient is discharged. They have questions for doctor.
[2024-08-17 11:34] VITALS: BP 110/58; PULSE 79; RESP 18; TEMP 36.7; O2SAT 99
--- NOTE | 2024-08-17 12:20 | PC.SS ---
Per rounding meeting, pt is pending ECHO and if it is done today, pt could d/c today. SS to get update from afternoon rounding.
== END 2024-08-17 12:38 | disposition home or self-care (01) | DRG 603 ==
LOC: SERX 09:18 → SERHOLD 15:24 → S3NX 20:09
PROVIDERS: Nurse Practitioner Family; Student in an Organized Health Care Education/Training Program; Admitting Provider Student in an Organized Health Care Education/Training Program; Emergency Provider Emergency Medicine; PCP Family Medicine; Visit Provider Student in an Organized Health Care Education/Training Program
DX: L03.116 Cellulitis of left lower limb (principal); Z68.44 Body mass index [BMI] 60.0-69.9, adult; I10 Essential (primary) hypertension; I87.2 Venous insufficiency (chronic) (peripheral); E66.01 Morbid (severe) obesity due to excess calories; Z86.718 Personal history of other venous thrombosis and embolism; Z86.711 Personal history of pulmonary embolism; Z79.01 Long term (current) use of anticoagulants
CPT/HCPCS: 36415; 73701; 80053; 80061; 83036; 83605; 83735; 84100; 84145; 85025; 85610; 85730; 87040; 87081; 96365; 96366; 96367; 96368; 96375; 99285; A4649; J0689; J1938; J2543; J3370; J7120; Q9967; A9270